=== PATIENT | male | born 1985 | race Caucasian/White ===

== ENCOUNTER 2017-07-22 21:01 | Emergency (ER) | payer MEDICAID ==
[~2017-07-22] VITALS: Ht 182.9 cm; Wt 70.0 kg
[2017-07-22] MEDS ORDERED: ZITHROMAX Z-PA250 MG PO (23:34)
[2017-07-22] MEDS ORDERED: [UNRECOGNIZED DRUG - OTHER] PO (23:34)
[2017-07-22] MEDS ORDERED: [UNRECOGNIZED DRUG - OTHER] PO (23:35)
[2017-07-22] MEDS ORDERED: [UNRECOGNIZED DRUG - OTHER] PO (23:36)
[2017-07-22 23:44] LABS: BASOPHIL % 0.5 % (0-2); PLATELET COUNT 238 x10^3mcL (130-400); RED CELL DISTRIBUTION WIDTH 12.6 % (11.5-14.5)
[2017-07-22 23:56] LABS: CALCIUM 8.5 mg/dL (8.5-10.1); CARBON DIOXIDE 26.6 mmol/L (21-32); CHLORIDE SERUM 107 mmol/L (98-107); CREATININE SERUM 0.9 mg/dL (0.7-1.3); GFR1 > 60 mL/min; GLUCOSE SERUM 98 mg/dL (74-106); POTASSIUM SERUM 3.9 mmol/L (3.5-5.1); SODIUM SERUM 144 mmol/L (136-145)
[2017-07-23 00:04] LABS: ALKALINE PHOSPHATASE 102 U/L (46-116); ALT/SGPT 98 U/L (16-63); AST/SGOT 22 U/L (15-37); BILIRUBIN TOTAL 0.3 mg/dL (0.20-1.00); TOTAL PROTEIN, SERUM 6.9 g/dL (6.4-8.2)
[2017-07-23 01:32] VITALS: BP 132/77
[2017-07-23 01:42] LABS: MAGNESIUM 2.2 mg/dL (1.8-2.4); PHOSPHOROUS 3.2 mg/dL (2.5-4.9)
[2017-07-23 01:48] LABS: CHOLESTEROL/HDL RATIO 2.3
[2017-07-23 01:50] LABS: T3 TOTAL 1.24 ng/mL
[2017-07-23 02:00] LABS: FREE T4 1.23 ng/dL (0.76-1.46); FREE THYROXINE INDEX 3.7 ug/dL (1.4-4.5); T4(THYROXINE) 10.2 ug/dL (4.7-13.3)
== END 2017-07-23 01:32 | disposition left against medical advice (07) ==
LOC: ED 21:01 → DU 07-23 00:13 → ED 07-23 01:32
PROVIDERS: Emergency Medicine; Family Medicine
DX: R00.2 Palpitations (principal); R07.89 Other chest pain; R42 Dizziness and giddiness; R11.0 Nausea; Z79.899 Other long term (current) drug therapy
CPT/HCPCS: 83880; 84439; J1885; J2405; J7030; Q0092